=== PATIENT | female | born 1985 | race Caucasian/White ===

== ENCOUNTER 2019-02-06 22:00 | Emergency (ER) | payer SELFPAY ==
--- NOTE | 2019-02-06 22:23 | ER Document Report ---
Addendum entered and electronically signed by SHAKA CISNEROS MD 02/07/19 16:20: Discharge - Discharge Clinical Impression: Suicidal ideation, Suicide attempt, Psychosocial distress, Relational problem Bupropion overdose Qualifiers: Encounter type: initial encounter Injury intent: intentional self-harm Qualified Code(s): T43.292A - Poisoning by other antidepressants, intentional self-harm, initial encounter Depression Qualifiers: Depression Type: unspecified Qualified Code(s): F32.9 - Major depressive disorder, single episode, unspecified Condition: Stable Disposition: HOME, SELF-CARE Additional Instructions: You have been evaluated by both medical and behavioral health providers while in the emergency department. You have been cleared from both acute medical and psychiatric services. It is felt that due to relational other psychosocial stresses symptoms of depression and suicidal ideation increased. It is important to talk about these issues in therapy and take medications as directed. Overdose / Ingestion You have taken more medication than you should have. After your evaluation and care, it is felt that your overdose is not likely to be harmful or of any significant consequences to you and you are being discharged. In the future, you should be careful not to take more medications than what is prescribed for you. Although your overdose does not seem to be of any danger to you at this time, if you develop any unusual or unexpected symptoms after your discharge, you should return to the Emergency Department immediately for re-evaluation. DEPRESSION: Your evaluation reveals that you have mental depression. While symptoms may be vague, they often include disturbance of sleep, fatigue, loss of appetite, and general loss of interest in life. While depression may be a side effect of drugs, or a reaction to a major change in your life, many cases have no known cause. If depression is acute, and related to a major loss in your life, you can expect it to clear completely with time. If you have been depressed a long time, are prone to repeated bouts of depression or low mood, or have been thinking of suicide, get help. Depression can be treated with anti-depressant medication and counselling. Long-term depression will often take a few weeks to clear, even with appropriate medication. Follow-up care is important. SUICIDAL IDEATION: Suicidal ideation is a common medical term for thoughts about suicide, which may be as detailed as a formulated plan, without the suicidal act itself. Although most people who undergo suicidal ideation do not commit suicide, some go on to make suicide attempts. The range of suicidal ideation varies greatly from fleeting to detailed planning, role playing, and unsuccessful attempts. While thoughts about suicide are common, most people do not carry out serious actions to commit suicide. Based upon your evaluation and discussion with you, we do not believe you are currently at risk to act upon your thoughts of suicide. You have agreed to return to the Emergency Department, at any time, if you feel inclined to act upon your suicidal thoughts. FOLLOW-UP CARE: Your Wellbutrin is being titrated or weened off. You should decrease to 150MG daily for 5 days then 75MG daily for 7 days. You have outpatient mental health follow at [facility] on 02/09/19 at 0800. You should request medication management and therapy. They will be able to further address medications. You have been provided the [facility] Mobile Crisis number for crisis, talk therapy and linkage to other supports/services. Your mother has a greed to have increased monitoring and supervision over you at home with help of other family members who reside in the home. They will be in charge of your medications and administration. All medications will be locked up. If you experience worsening or a significant change in your symptoms, notify the physician immediately, utilize mobile crisis or return to the Emergency Department at any time for re-evaluation. Referrals: [facility] [Provider Group] - 02/09/19 8:00 am [facility] [Outside] - Follow up as needed Addendum entered and electronically signed by ANABELL MYERS LPC 02/07/19 11:09: Discharge - Discharge Clinical Impression: Suicidal ideation, Suicide attempt, Depression, Psychosocial distress, Relational problem Bupropion overdose Qualifiers: Encounter type: initial encounter Injury intent: intentional self-harm Qualified Code(s): T43.292A - Poisoning by other antidepressants, intentional self-harm, initial encounter Condition: Stable Disposition: HOME, SELF-CARE Additional Instructions: You have been evaluated by both medical and behavioral health providers while in the emergency department. You have been cleared from both acute medical and psychiatric services. It is felt that due to relational other psychosocial stresses symptoms of depression and suicidal ideation increased. It is important to talk about these issues in therapy and take medications as directed. Overdose / Ingestion You have taken more medication than you should have. After your evaluation and care, it is felt that your overdose is not likely to be harmful or of any significant consequences to you and you are being discharged. In the future, you should be careful not to take more medications than what is prescribed for you. Although your overdose does not seem to be of any danger to you at this time, if you develop any unusual or unexpected symptoms after your discharge, you should return to the Emergency Department immediately for re-evaluation. DEPRESSION: Your evaluation reveals that you have mental depression. While symptoms may be vague, they often include disturbance of sleep, fatigue, loss of appetite, and general loss of interest in life. While depression may be a side effect of drugs, or a reaction to a major change in your life, many cases have no known cause. If depression is acute, and related to a major loss in your life, you can expect it to clear completely with time. If you have been depressed a long time, are prone to repeated bouts of depression or low mood, or have been thinking of suicide, get help. Depression can be treated with anti-depressant medication and counselling. Long-term depression will often take a few weeks to clear, even with appropriate medication. Follow-up care is important. SUICIDAL IDEATION: Suicidal ideation is a common medical term for thoughts about suicide, which may be as detailed as a formulated plan, without the suicidal act itself. Although most people who undergo suicidal ideation do not commit suicide, some go on to make suicide attempts. The range of suicidal ideation varies greatly from fleeting to detailed planning, role playing, and unsuccessful attempts. While thoughts about suicide are common, most people do not carry out serious actions to commit suicide. Based upon your evaluation and discussion with you, we do not believe you are currently at risk to act upon your thoughts of suicide. You have agreed to return to the Emergency Department, at any time, if you feel inclined to act upon your suicidal thoughts. FOLLOW-UP CARE: Your Wellbutrin is being titrated or weened off. You should decrease to 150MG daily for 5 days then 75MG daily for 7 days. You have outpatient mental health follow at [place] in [place] on 02/09/19 at 0800. You should request medication management and therapy. They will be able to further address medications. You have been provided the [facility] number for crisis, talk therapy and linkage to other supports/services. Your mother has agreed to have increased monitoring and supervision over you at home with help of other family members who reside in the home. They will be in charge of your medications and administration. All medications will be locked up. If you experience worsening or a significant change in your symptoms, notify the physician immediately, utilize mobile crisis or return to the Emergency Department at any time for re-evaluation. Referrals: [facility] [Outside] - Follow up as needed [facility] [Provider Group] - 02/09/19 8:00 am Original Note: ED General - General Stated Complaint: SI Time Seen by Provider: 02/06/19 22:11 Cannot obtain history due to: Uncooperative, Other - Anxious, tearful, unable to provide meaningful history Notes: Patient is a 33-year-old female with a past medical's of anxiety, depression, presents after intentional overdose on bupropion. Apparently took approximately 3000 mg with the intent to "go to sleep and not wake up". Patient is otherwise a very poor historian, tearful, does not provide additional details. Apparently she did not take any additional medications beyond bupropion. - Related Data Allergies/Adverse Reactions: codeine Allergy (Verified 02/07/19 00:07) Past Medical History - General Information source: Patient, Emergency Med Personnel - Social History Smoking Status: Never Smoker Frequency of alcohol use: None Drug Abuse: None Lives with: Family Family History: Reviewed & Not Pertinent Review of Systems - Review of Systems Notes: Constitutional: Negative for fever. HENT: Negative for sore throat. Eyes: Negative for visual changes. Cardiovascular: Negative for chest pain. Respiratory: Negative for shortness of breath. Gastrointestinal: Negative for abdominal pain, vomiting or diarrhea. Genitourinary: Negative for dysuria. Musculoskeletal: Negative for back pain. Skin: Negative for rash. Neurological: Negative for headaches, weakness or numbness. 10 point ROS negative except as marked above and in HPI. Physical Exam - Vital signs Vitals: Temp Pulse Ox 98.8 F 100 02/06/19 22:02 02/06/19 22:02 Interpretation: Tachycardic Notes: PHYSICAL EXAMINATION: GENERAL: Highly anxious but otherwise in no acute distress HEAD: Atraumatic, normocephalic. EYES: Pupils equal round and reactive to light, extraocular movements intact, s clera anicteric, conjunctiva are normal. ENT: nares patent, oropharynx clear without exudates. Moist mucous membranes. NECK: Normal range of motion, supple without lymphadenopathy LUNGS: Breath sounds clear to auscultation bilaterally and equal. No wheezes rales or rhonchi. HEART: Regular rate and rhythm without murmurs ABDOMEN: Soft, nontender, normoactive bowel sounds. No guarding, no rebound. No masses appreciated. EXTREMITIES: Normal range of motion, no pitting or edema. No cyanosis. NEUROLOGICAL: No focal neurological deficits. Moves all extremities spontaneously and on command. PSYCH: Anxious, tearful, histrionic SKIN: Warm, Dry, normal turgor, no rashes or lesions noted. Course - Re-evaluation Re-evalutation: 02/06/19 22:25 Patient presents after an intentional overdose on approximately 3000 mg of bu propion by her own report. No additional coingestions by her report. Patient does arrive by EMS. Poison control has been contacted and has advised a 10-hour observation. Patient's current EKG without concerning changes including normal QRS and normal QTC. Will continue to monitor closely. Patient will be maintained on continuous telemetry. IVC affidavit has been completed but we do not have a notary present. I have contacted hospital administration and informed them of the need to have this IVC form notarized so that it is valid 02/07/19 01:23 Patient has not had any seizure activity. Remains quite tachycardic although no prolongation of QRS or QTC. Did not complaining any anxiety medication although is visibly highly anxious. I am skeptical that the patient truly took 3000 mill grams of bupropion as we would certainly expect more clinical symptoms given such a high dose. Mother at bedside likewise is skeptical at this dose stating that she thinks it was much closer to 1200 mg or less. Will continue to monitor. - Vital Signs Vital signs: Temp Pulse Resp BP Pulse Ox 98.8 F 124 H 22 H 119/79 100 02/06/19 22:02 02/07/19 00:05 02/07/19 03:01 02/07/19 03:00 02/07/19 03:01 - Laboratory Result Diagrams: 02/06/19 22:33 02/06/19 22:33 Laboratory results interpreted by me: 02/06/19 02/06/19 22:33 22:52 Chloride 109 H ALT 76 H Urine Blood LARGE H Salicylates < 1.0 L Acetaminophen < 10 L - EKG Interpretation by Me Additional EKG results interpreted by me: 02/06/19 22:25 Sinus tachycardia, rate 119, no ST elevations or depressions. QTC 428. QRS duration 84 Discharge - Discharge Clinical Impression: Suicidal ideation, Suicide attempt Bupropion overdose Qualifiers: Encounter type: initial encounter Injury intent: intentional self-harm Qualified Code(s): T43.292A - Poisoning by other antidepressants, intentional self-harm, initial encounter Condition: Good Disposition: PSYCH HOSP/UNIT
--- NOTE | 2019-02-06 22:37 | EKG REPORT ---
SEVERITY:- BORDERLINE ECG - SINUS TACHYCARDIA BORDERLINE T ABNORMALITIES, INFERIOR LEADS : Confirmed by: Emily Perry 06-Feb-2019 22:36:28
[2019-02-06 22:45] LABS: ABSOLUTE BASOPHILS # (AUTO) 0.1 10^3/uL (0.0-0.2); ABSOLUTE EOSINOPHILS # (AUTO) 0.1 10^3/uL (0.0-0.6); ABSOLUTE LYMPHOCYTES (AUTO) 2.9 10^3/uL (0.5-4.7); ABSOLUTE MONOCYTES (AUTO) 0.4 10^3/uL (0.1-1.4); ABSOLUTE NEUT (AUTO) 4.2 10^3/uL (1.7-8.2); EOSINOPHILS % (AUTO) 1.5 % (0-6); HEMATOCRIT 39.2 % (36.0-47.0); HEMOGLOBIN 13.6 g/dL (12.0-15.5); MEAN CORPUSCULAR HEMOGLOBIN 32.5 pg (27.0-33.4); MEAN CORPUSCULAR HGB CONC 34.7 g/dL (32.0-36.0); MEAN CORPUSCULAR VOLUME 94 fl (80-97); MONOCYTES % (AUTO) 5.5 % (3-13); PLATELET COUNT 175 10^3/uL (150-450); RED BLOOD COUNT 4.19 10^6/uL (3.72-5.28); TOTAL CELLS COUNTED % (AUTO) 100 %; WHITE BLOOD COUNT 7.7 10^3/uL (4.0-10.5)
[2019-02-06 23:07] LABS: ALANINE AMINOTRANSFERASE 76 U/L (9-52); ALBUMIN 4.3 g/dL (3.5-5.0); ALCOHOL 50 mg/dL (NONE DETECTED); ALKALINE PHOSPHATASE 54 U/L (38-126); ANION GAP 11 (5-19); ASPARTATE AMINO TRANSFERASE 34 U/L (14-36); BILIRUBIN,DIRECT 0.2 mg/dL (0.0-0.4); BILIRUBIN,TOTAL 0.5 mg/dL (0.2-1.3); BLOOD UREA NITROGEN 7 mg/dL (7-20); CALCIUM 9.2 mg/dL (8.4-10.2); CARBON DIOXIDE 22 mmol/L (22-30); CHLORIDE 109 mmol/L (98-107); GLUCOSE 85 mg/dL (75-110); POTASSIUM 3.7 mmol/L (3.6-5.0); SODIUM 141.5 mmol/L (137-145)
[2019-02-06 23:08] LABS: ACETAMINOPHEN < 10 ug/mL (10-30); SALICYLATE < 1.0 mg/dL (2.0-20.0)
[2019-02-06 23:21] LABS: APPEARANCE,URINE CLEAR; BILIRUBIN,URINE NEGATIVE (NEGATIVE); COLOR,URINE YELLOW; GLUCOSE, URINE NEGATIVE (NEGATIVE); KETONES,URINE NEGATIVE (NEGATIVE); LEUKOCYTE ESTERASE,URINE NEGATIVE (NEGATIVE); NITRITE,URINE NEGATIVE (NEGATIVE); PROTEIN,URINE NEGATIVE (NEGATIVE); URINE SPECIFIC GRAVITY 1.006; UROBILINOGEN,URINE NEGATIVE mg/dL (<2.0)
[2019-02-06 23:36] LABS: URINE AMPHETAMINES SCREEN NEGATIVE; URINE BARBITURATES SCREEN NEGATIVE; URINE BENZODIAZEPINES SCREEN NEGATIVE; URINE COCAINE SCREEN NEGATIVE; URINE MARIJUANA (THC) SCREEN NEGATIVE; URINE METHADONE SCREEN NEGATIVE; URINE PHENCYCLIDINE SCREEN NEGATIVE
[2019-02-07] MEDS ORDERED: ONDANSETRON HCL INJ/PF 4 MG/2 ML SDV IV ONE (08:25)
[2019-02-07] MEDS ORDERED: LORAZEPAM INJ 2 MG/1 ML VIAL IV ONE (09:44)
[2019-02-07] MEDS ORDERED: FAMOTIDINE 20 MG TABLET PO ONE (09:45)
[2019-02-07] MEDS ORDERED: NORMAL SALINE 1000 ML 1,000 ML IV ONE (09:46)
--- NOTE | 2019-02-07 11:00 | PSYCHOLOGICAL NOTE ---
Psych Note - Psych Note Date seen by psych provider: 02/07/19 Psych Note: Presenting Problem: OD of 150MG (20 tablets) of patient's prescribed Wellbutrin. Mother, Serina, at bedside. Diagnosis: Psychosocial Stress Relations Distress with Intimate Partner Unspecified Depressive Disorder Medication recommendations made by the psychiatric medical provider, Dr. Mallory MD., includes: Weening off Decrease Wellbutrin to 150MG daily for 5 days then Decrease Wellbutrin to 75MG daily for 7 days Impression/Plan: Patient is cleared from acute psychiatric services. Recommendation to rescind 24 Hour IVC Petition (was not notarized). She denied current SI, was regretful and embarrassed, denied previous SI attempts. No observed psychosis however still some confusion. Included mother at bedside in plan of care. She stated medications were already collected and locked up. She agreed another adult would be in control of patient's medications and administration. Patient resides with her (patient's) daughter, mother, father, 2 brothers, sister and some of their kids. There are adults for increased monitoring and supervision. Mother agreed to do so. Weening patient off Wellbutrin she has been prescribed by [place] psychiatrist for the past 3 months. Follow up appointment scheduled at [place] [facility] [place] on 02/09/19 at 0800. Patient provided with outpatient MH resource sheet which documented appointment date and time, as well as highlighted [facility] for crisis/talk therapy/linkage to other supports/services. Consulted with Dr. Ramos regarding the management and care of patient. ED Physician in agreement with recommendations.
[2019-02-07] MEDS ORDERED: DEXTROSE 5%-LACTATED RINGERS 1,000 ML IV ONE ×2 (13:22→14:33)
--- NOTE | 2019-02-07 16:24 | ER Document Report ---
Doctor's Note Notes: 02/07/19 16:22 The patient was cleared by psychiatry service for discharge earlier today. She has remained tachycardic entire stay. I did going to see her at one point when she was sleeping and her heart rate was 120, when I woke her up to talk about her disposition, her heart rate went to 135. Later it came back down in the 115 120 range, until her mother came in and again it went up to about 135. I did give her 2 additional liters of IV fluids as there was concern that there may have been some dehydration due to the alcohol drinking from last night. At this time she is sitting up and snacking and drinking fluids and remains with a heart rate in the 120 range, until she saw me conversing with her nurse, and her heart rate immediately went to 130. Her TSH was normal, there was nothing in her lab work or physical exam to explain her tachycardia. When these fluids finish she will be discharged home.
[2019-02-07 18:22] VITALS: BP 103/66
== END 2019-02-07 18:22 | disposition home or self-care (01) ==
LOC: ER 22:00
DX: T43.292A Poisoning by other antidepressants, intentional self-harm, initial encounter (principal); R00.0 Tachycardia, unspecified; F32.9 Major depressive disorder, single episode, unspecified; Z63.0 Problems in relationship with spouse or partner; Z88.5 Allergy status to narcotic agent; Z79.899 Other long term (current) drug therapy
CPT/HCPCS: 93005; 99285; 96361 ×2; 96374; 96375; 36415; 80307 ×4; 84443; 84703; 85025; 80053; 81001; 93010; J2060; J2405; J7121; J7030